=== PATIENT | female | born 1950 | race Caucasian/White ===

== ENCOUNTER → 2020-07-06 | Outpatient (CLI) | payer MEDICARE ==
--- NOTE | 2020-07-13 15:44 | RAD ---
EXAM: Bilateral digital screening mammogram with tomosynthesis. HISTORY: 69-year-old female presents for screening mammography. TECHNIQUE: Full-field digital craniocaudal and mediolateral oblique 2D and 3D tomosynthesis images of both breasts are obtained for evaluation. Computer aided detection was applied. COMPARISON: 05/06/2014 BREAST PARENCHYMAL DENSITY: Level B - Scattered fibroglandular densities. FINDINGS: There is no new suspicious mass, microcalcification or region of architectural distortion. IMPRESSION: BI-RADS Category 2: Benign finding(s). RECOMMENDATION: Annual mammography is recommended. If your mammogram demonstrates that you have dense breast tissue, which could hide abnormalities, and if you have other risk factors for breast cancer that have been identified, you might benefit from s upplemental screening tests that may be suggested by your ordering physician. Dense breast tissue, i n and of itself, is a relatively common condition. This information is not provided to cause undue c oncern, but rather to raise your awareness and to promote discussion with your physician regarding th e presence of other risk factors, in addition to dense breast tissue. A report of your mammography re sults will be sent to you and your physician. You should contact your physician if you have any ques tions or concerns regarding this report. Mammography is a sensitive method for finding small breast cancers, but it does not detect them all a nd is not a substitute for careful clinical examination. A negative mammogram does not negate a clin ically suspicious finding and should not result in delay in biopsying a clinically suspicious abnorma lity. PQRS compliance statement - Patient information was entered into a reminder system with a target due date for the next mammogram. "Our facility is accredited by the [employer] Mammography [employer]." Electronically signed by: Mariah Alejandro MD (07/13/2020 3:42 PM) [id number]
== END ==
LOC: MAMMO 08:24
PROVIDERS: ATTEND Nurse Practitioner Adult Health
DX: Z12.31 Encounter for screening mammogram for malignant neoplasm of breast (principal)
CPT/HCPCS: 77063; 77067

== ENCOUNTER 2021-06-02 12:04 | Emergency (ER) | payer MEDICARE ==
[~2021-06-02] VITALS: Ht 167.6 cm; Wt 124.0 kg
[2021-06-02] MEDS ORDERED: IV RINGERS SOLUTION,LACTATED 500 ML IV ONE (13:00)
--- NOTE | 2021-06-02 13:06 | PHYS DOC ---
Past History Past Medical History: A-Fib, Anxiety, COPD, Hypothyroid Additional Past Medical Histor: enlarged heart, cardioversion, poor historian Past Surgical History: Cholecystectomy, Gastric Bypass Drug Use: None General Adult EDM: Chief Complaint: SORE THROAT HPI: HPI: Patient is a 70 year old female who presents with sore throat, shortness of breath, cough, fever and weakness for the past few days. Patient reports her symptoms got worse this morning. She states that her sore throat is bothering her the most. Patient reports significant sputum production with her cough. Lyly patrick has past medical history that includes COPD, for which she does not use daily oxygen. Patient reports additional past medical history of atrial fibrillation status post cardioversion, enlarged heart and anxiety. Patient states that she normally sleeps with her head slightly elevated and is not comfortable laying flat. She denies past medical history of hypertension or congestive heart failure. Patient denies palpitations, chest pain. Review of Systems: Review of Systems: Constitutional: See HPI Eyes: Denies change in visual acuity, visual field deficits or discharge HENT: Denies ear pain or nasal congestion Respiratory: See HPI Cardiovascular: See HPI GI: Denies abdominal pain, nausea, vomiting, bloody stools or diarrhea : Denies dysuria or hematuria Musculoskeletal: Denies back pain or joint pain Integument: Denies rash or other skin lesion Neurologic: Denies headache, focal weakness or sensory changes Current Medications: Current Meds: Current Medications Medications (Trade) Dose Ordered Sig/Cecilia Start Time Stop Time Status Last Admin Dose Admin Hydroxyzine HCl (Atarax) 50 mg 1X PRN 06/02/21 12:45 UNV Lactated Ringer's 500 ml @ 500 mls/hr 1X ONCE 06/02/21 13:00 06/02/21 13:59 UNV Physical Exam: PE: Constitutional: Obese, somewhat disheveled, no acute distress, non-toxic appearance. HENT: Normocephalic, atraumatic, bilateral external ears normal, oropharynx moist, no oral exudates, nose normal. Eyes: EOMI, conjunctiva normal, no discharge. Neck: Normal range of motion, no stridor. Cardiovascular: Elevated heart rate with regular rhythm. No apparent murmurs, rubs or gallops. Lungs & Thorax: Bilateral breath sounds clear to auscultation, however diminished in bilateral bases. Extremities: No tenderness, no cyanosis, no clubbing, ROM intact, no edema. Neurologic: Alert and oriented x4, normal motor function, normal sensory function, no focal deficits noted. Psychologic: Affect pleasant, good judgment, mood anxious. Current Patient Data: Labs: Laboratory Tests Test 06/02/21 13:10 White Blood Count 11.6 x10^3/uL (4.0-11.0) Red Blood Count 4.87 x10^6/uL (3.50-5.40) Hemoglobin 12.8 g/dL (12.0-15.5) Hematocrit 40.0 % (36.0-47.0) Mean Corpuscular Volume 82 fL (79-100) Mean Corpuscular Hemoglobin 26 pg (25-35) Mean Corpuscular Hemoglobin Concent 32 g/dL (31-37) Red Cell Distribution Width 17.1 % (11.5-14.5) Platelet Count 169 x10^3/uL (140-400) Neutrophils (%) (Auto) 89 % (31-73) Lymphocytes (%) (Auto) 5 % (24-48) Monocytes (%) (Auto) 5 % (0-9) Eosinophils (%) (Auto) 0 % (0-3) Basophils (%) (Auto) 1 % (0-3) Neutrophils # (Auto) 10.3 x10^3uL (1.8-7.7) Lymphocytes # (Auto) 0.6 x10^3/uL (1.0-4.8) Monocytes # (Auto) 0.5 x10^3/uL (0.0-1.1) Eosinophils # (Auto) 0.0 x10^3/uL (0.0-0.7) Basophils # (Auto) 0.1 x10^3/uL (0.0-0.2) Sodium Level 139 mmol/L (136-145) Potassium Level 5.1 mmol/L (3.5-5.1) Chloride Level 101 mmol/L (98-107) Carbon Dioxide Level 27 mmol/L (21-32) Anion Gap 11 (6-14) Blood Urea Nitrogen 32 mg/dL (7-20) Creatinine 1.3 mg/dL (0.6-1.0) Estimated GFR (Cockcroft-Gault) 40.6 BUN/Creatinine Ratio 25 (6-20) Glucose Level 138 mg/dL (70-99) Calcium Level 10.0 mg/dL (8.5-10.1) Magnesium Level 1.9 mg/dL (1.8-2.4) Total Bilirubin 0.7 mg/dL (0.2-1.0) Aspartate Amino Transf (AST/SGOT) 60 U/L (15-37) Alanine Aminotransferase (ALT/SGPT) 43 U/L (14-59) Alkaline Phosphatase 72 U/L (46-116) Troponin I High Sensitivity 20 ng/L (4-50) JP-Gwx-B-Type Natriuretic Peptide 790 pg/mL (0-124) Total Protein 8.2 g/dL (6.4-8.2) Albumin 4.0 g/dL (3.4-5.0) Albumin/Globulin Ratio 1.0 (1.0-1.7) Vital Signs: Vital Signs Date Time Temp Pulse Resp B/P (MAP) Pulse Ox O2 Delivery O2 Flow Rate FiO2 06/02/21 18:21 97 20 191/81 (117) 94 Room Air 06/02/21 16:21 103 23 158/77 (104) 93 Room Air 06/02/21 15:51 98 22 158/82 (107) 92 Room Air 06/02/21 15:21 103 22 154/80 (104) 93 Room Air 06/02/21 14:53 105 22 164/80 (108) 93 Room Air 06/02/21 12:19 98.5 117 18 92 Room Air EKG: EKG: EKG Interpreted by Dr. Espinoza at 1244: Sinus tachycardia 111 bpm with occasional PAC. WV 150 ms/QT 336 ms. No STEMI. Radiology/Procedures: Radiology/Procedures: PROCEDURE: CHEST AP ONLY AP chest. HISTORY: Tachycardia, short of breath AP view was taken of the chest. Heart is upper normal in size. Abdomen obscures the lung bases. There is mild left lung infiltrate. Left lung base is poorly evaluated. PA and lateral views could be of benefit. IMPRESSION: 1. Mild left lung infiltrate. 2. Poor evaluation left lung base. Electronically signed by: Pavel Omer MD (06/02/2021 1:15 PM) [facility] Heart Score: C/O Chest Pain: No Course & Med Decision Making: Course & Med Decision Making Pertinent Labs and Imaging studies reviewed. (See chart for details) Patient is a 70-year-old female that is a poor historian, and so past medical history is difficult to obtain. However, with her complaints of shortness of breath, orthopnea and sputum production, work-up today will include chest x-ray, EKG, labs including troponin and BNP, urinalysis. Patient is found to have a left lower lobe infiltrate on chest x-ray as well as a white count of 11.6 and a BNP of 790. As the patient has no known/confirmed history of CHF and could possibly have pneumonia superimposed, it was decided to transfer her to [facility] for higher level of care that includes thorough cardiology work-up as well as pulmonology access. Dr. Pierce, hospitalist, gladly accepts patient for admission. Prior to transfer, patient was given IV Rocephin and IV azithromycin. Patient was hemodynamically stable at time of transfer. Dragon Disclaimer: Dragon Disclaimer: This electronic medical record was generated, in whole or in part, using a voice recognition dictation system. Departure Departure: Impression: Primary Impression: CHF (congestive heart failure) Qualified Codes: I50.9 - Heart failure, unspecified Additional Impression: Left lower lobe pneumonia Qualified Codes: J18.9 - Pneumonia, unspecified organism Disposition: 02 SHORT TERM HOSPITAL Condition: GUARDED Referrals: TAJ COX MD (PCP) ANN-MARIE GOSS Jun 02, 2021 13:06
--- NOTE | 2021-06-02 13:17 | RAD ---
AP chest. HISTORY: Tachycardia, short of breath AP view was taken of the chest. Heart is upper normal in size. Abdomen obscures the lung bases. There is mild left lung infiltrate. Left lung base is poorly evaluated. PA and lateral views could be of b enefit. IMPRESSION: 1. Mild left lung infiltrate. 2. Poor evaluation left lung base. Electronically signed by: Pavel Omer MD (06/02/2021 1:15 PM) [facility]
[2021-06-02 13:38] LABS: BASO # 0.1 x10^3/uL (0.0-0.2); BASO % 1 % (0-3); EOS % 0 % (0-3); HEMOGLOBIN 12.8 g/dL (12.0-15.5); LYMPH # 0.6 x10^3/uL (1.0-4.8); LYMPH % 5 % (24-48); MEAN CORPUSCULAR HEMOGLOBIN 26 pg (25-35); MEAN CORPUSCULAR HGB CONC 32 g/dL (31-37); MEAN CORPUSCULAR VOLUME 82 fL (79-100); MONO # 0.5 x10^3/uL (0.0-1.1); MONO % 5 % (0-9); NEUT # 10.3 x10^3uL (1.8-7.7); NEUT % 89 % (31-73); PLATELET COUNT 169 x10^3/uL (140-400); RED BLOOD COUNT 4.87 x10^6/uL (3.50-5.40); RED CELL DISTRIBUTION WIDTH 17.1 % (11.5-14.5); WHITE BLOOD COUNT 11.6 x10^3/uL (4.0-11.0)
[2021-06-02] MEDS: hydrOXYzine HCL 25 MG TABLET PO PRN ×2 (13:41→16:28)
[2021-06-02 13:48] LABS: CREATININE 1.3 mg/dL (0.6-1.0); GFR 40.6
[2021-06-02 14:00] LABS: MAGNESIUM 1.9 mg/dL (1.8-2.4); TOTAL BILIRUBIN 0.7 mg/dL (0.2-1.0); TOTAL PROTEIN 8.2 g/dL (6.4-8.2)
[2021-06-02 14:05] LABS: POTASSIUM 5.1 mmol/L (3.5-5.1)
--- NOTE | 2021-06-02 14:27 | EKG ---
[address] [address] Test Date: 2021-06-02 Test Time: 12:42:54 Pat Name: LIBAN CROW Department: Room: Gender: F [employer] T[employer] Layer: KENNETH : 1950 Requested By: ANN-MARIE GOSS Order Number: [id number] Reading MD: Neil Spann Measurements Intervals [place] Rate: 111 P: 90 DE: 150 QRS: -86 QRSD: 88 T: 61 QT: 336 QTc: 460 Interpretive Statements SINUS TACHYCARDIA ATRIAL PREMATURE COMPLEX(ES) T ABNORMALITY IN HIGH LATERAL LEADS ABNORMAL ECG RI6.02 No previous ECG available for comparison Electronically Signed On 06-04-2021 13:30:51 CDT by Neil Spann
[2021-06-02] MEDS ORDERED: AZITHROMYCIN 500 MG in IV NORMAL SALINE 250ML 250 ML IV ONE (14:45)
[2021-06-02] MEDS ORDERED: IV NORMAL SALINE 50ML 50 ML ONE (15:29)
[2021-06-02] MEDS ORDERED: cefTRIAXone SODIUM 1 GM VIAL ONE (15:30)
[2021-06-02] MEDS ORDERED: AZITHROMYCIN 500 MG VIAL. IV ONE (16:16)
[2021-06-02] MEDS ORDERED: IV NORMAL SALINE 250ML 250 ML ONE (16:16)
[2021-06-02 18:21] VITALS: BP 191/81
== END 2021-06-02 18:45 | disposition short-term general hospital (02) ==
LOC: ER 12:04
DX: I50.9 Heart failure, unspecified (principal); J18.9 Pneumonia, unspecified organism; I48.91 Unspecified atrial fibrillation; F41.9 Anxiety disorder, unspecified; J44.9 Chronic obstructive pulmonary disease, unspecified; E03.9 Hypothyroidism, unspecified; Z98.84 Bariatric surgery status
CPT/HCPCS: 36415; 71045; 80053; 83735; 83880; 84484; 85025; 93005; 96361; 96365; 96367; 99285; J0456; J0696; J7050; J7120